=== PATIENT | female | born 1960 | race Caucasian/White ===

== ENCOUNTER 2018-12-12 18:59 | Emergency (ER) | payer OTHER, MEDICAID ==
[~2018-12-12] VITALS: Ht 167.6 cm; Wt 90.7 kg
[2018-12-12 19:01] VITALS: BP 165/91
[2018-12-12] MEDS ORDERED: VITD1000 PO (19:08)
[2018-12-12] MEDS ORDERED: FURO-570 PO (19:08)
[2018-12-12] MEDS ORDERED: POLY15SO48 OP (19:08)
[2018-12-12] MEDS ORDERED: POTA10TE30 PO (19:08)
[2018-12-12] MEDS ORDERED: CYAN100T65 PO (19:08)
[2018-12-12] MEDS ORDERED: OLAN2.5T1 PO ×2 (19:08)
[2018-12-12] MEDS ORDERED: ACET-2619 PO (19:08)
[2018-12-12] MEDS ORDERED: LISI5TAB18 PO (19:08)
--- NOTE | 2018-12-12 19:19 | NUR ---
PT [facility] ED [facility]/O ABD PAIN WITH N/V/D X 2DAYS. ABD IS SOFT NON TENDER, NO DISTENTION NOTED. PT DENIES PAIN UPON PALPATION. REPORTING INCREASED DIARRHEA OVER THE LAST DAY. PT PLACED INTO BED, PENDING MD BLAIR.
[2018-12-12] MEDS ORDERED: ALUMINUM HYD/MAG/SIMETHICONE 30 ML UDC PO ONE (20:30)
[2018-12-12 20:35] LABS: APPEARANCE,URINE SL CLOUDY (CLEAR); BILIRUBIN,URINE NEGATIVE (NEGATIVE); BLOOD, URINE NEGATIVE (NEGATIVE); COLOR,URINE YELLOW (YELLOW); LEUKOCYTE ESTERASE ,URINE 1+ (NEGATIVE); NITRITE, URINE NEGATIVE (NEGATIVE); UGLUCOSE NEGATIVE (NEGATIVE)
[2018-12-12 20:38] LABS: RBC,URINE 0-5 /HPF (0-5); WBC,URINE 16-25 (MOD) /HPF (0-5)
--- NOTE | 2018-12-12 21:17 | NUR ---
PT REPORTS RELIEF OF PAIN POST VEST BASTER. WILL CONTINUE TO ASSESS.
[2018-12-12] MEDS ORDERED: CEPHALEXIN 500 MG CAP PO ONE (21:20)
--- NOTE | 2018-12-12 21:26 | NUR ---
SPOKE WITH ROSA MARIA AT [facility], INFORMED OF PT STATUS. PER ROSA MARIA, PT OKAY TO TRANSPORT VIA [facility], STAFF WILL BE PRESENT TO RECEIVE PT AT FACILITY.
--- NOTE | 2018-12-12 22:23 | NUR ---
Patient discharged with v/s stable. Written and verbal after care instructions given and explained. Patient alert, oriented and verbalized understanding of instructions. Wheel Chair Assisted with to car. All questions addressed prior to discharge. ID band removed. Patient advised to follow up with PMD. Rx of KEFLEX, BENTYL given. Patient educated on indication of medication including possible reaction and side effects. Opportunity to ask questions provided and answered.
[2018-12-12 22:24] VITALS: BP 127/55
--- NOTE | 2018-12-12 22:24 | NUR ---
PT W/C ASSISTED TO LOBBY AWAITING CAB. PT VERBALIZES UNDERSTANDING OF ALL INSTRUCTIONS.
== END 2018-12-12 22:23 | disposition home or self-care (01) ==
LOC: MED 18:59
DX: N39.0 Urinary tract infection, site not specified (principal); B34.9 Viral infection, unspecified; I10 Essential (primary) hypertension; F99 Mental disorder, not otherwise specified; Z79.899 Other long term (current) drug therapy
CPT/HCPCS: 81001; 87086; 99283

== ENCOUNTER 2019-05-13 15:19 | Emergency (ER) | payer OTHER, MEDICAID ==
[~2019-05-13] VITALS: Ht 170.2 cm; Wt 105.7 kg
[~2019-05-13 15:19] MED LIST: ACET-2619 PO; CYAN100T65 PO; FURO-570 PO; LISI5TAB18 PO; OLAN2.5T1 PO; POLY15SO48 OP; POTA10TE30 PO; VITD1000 PO
--- NOTE | 2019-05-13 15:19 | NUR ---
PT BIBA TO BED 12.
[2019-05-13 15:22] VITALS: BP 150/83
--- NOTE | 2019-05-13 15:25 | NUR ---
BIBA W C/O SUDDEN ONSET LOWER BACK PAIN STARTING APPROX. 6 HRS AGO. PT HAD 1 EPISODE OF URINARY INCONTINENCE THAT SHE WAS UNAWARE OF UNTIL SHE FELT HER PANTS WET. PT REPORTS PAIN IS SEVERE 10/10 AND DENIES INJURY. NO BRUISING OR DISCOLORATION NOTED. AT THIS TIME, PT IS ABLE TO STAND UP WITH PAIN BUT UNABLE TO WALK. USUALLY AMBULATES AT [facility]ISON WITHOUT ASSISTANCE. PT ALERT AND AWAKE. BED IS DWON, LOCKED, BED RAIL X 1, ERMD TO SEE PT. HX: HTN, SCHIZOPHRENIA RX: SEE MED REC
--- NOTE | 2019-05-13 15:58 | NUR ---
PT ASSISTED ONTO BEDPAN
--- NOTE | 2019-05-13 16:08 | NUR ---
URINE COLLECTED AND PT ASSISTED OFF OF BEDPAN
[2019-05-13] MEDS ORDERED: ONDANSETRON 4 MG ODT PO ONE (16:45)
[2019-05-13] MEDS ORDERED: KETOROLAC 30 MG/ML VIAL IM ONE (16:45)
[2019-05-13] MEDS ORDERED: HYDROcodone/APAP 5/325 MG 1 TAB TAB PO ONE (16:45)
--- NOTE | 2019-05-13 16:53 | NUR ---
TORADOL, ZOFRAN, AND NORCO ADMINISTERED ORDERED, PAIN 10/10 PER PATIENT
--- NOTE | 2019-05-13 16:56 | NUR ---
[facility]
[2019-05-13 17:11] LABS: APPEARANCE,URINE CLEAR (CLEAR); BILIRUBIN,URINE NEGATIVE (NEGATIVE); BLOOD, URINE NEGATIVE (NEGATIVE); COLOR,URINE YELLOW (YELLOW); LEUKOCYTE ESTERASE ,URINE TRACE (NEGATIVE); NITRITE, URINE POSITIVE (NEGATIVE); UGLUCOSE NEGATIVE (NEGATIVE)
--- NOTE | 2019-05-13 17:34 | NUR ---
REPORT GIVEN TO ORIANA CELAYA
--- NOTE | 2019-05-13 17:34 | NUR ---
PT RETURNED FROM CT VIA [facility]
[2019-05-13 17:46] LABS: RBC,URINE NONE SEEN /HPF (0-5); WBC,URINE NONE SEEN /HPF (0-5)
--- NOTE | 2019-05-13 18:25 | NUR ---
PT RECIEVED FOOD TRAY.
--- NOTE | 2019-05-13 18:49 | NUR ---
FANNIE REPORTED TO ORTEGA SARABIA. Addendum: 05/13/19 at 1851 [facility]
--- NOTE | 2019-05-13 19:26 | NUR ---
BEDSIDE REPORT GIVEN TO SHAUNNA CELAYA
--- NOTE | 2019-05-13 19:26 | NUR ---
REPORT RECIEVED FROM BELIA JOSHUA. ASSUMED CARE AT THIS TIME. PT IN STABLE CONDITION. WILL CONTINUE TO MONITOR.
--- NOTE | 2019-05-13 21:10 | NUR ---
PT SEEN WITH EYES CLOSED. VISIBLE CHEST RISE AND FALL NOTED. VSS. WILL CONTINUE TO MONITOR.
--- NOTE | 2019-05-13 22:50 | NUR ---
PT ASSISTED TO RESTROOM USING BEDPAN.
--- NOTE | 2019-05-13 23:40 | NUR ---
PT SEEN WITH EYES CLOSED. VISIBLE CHEST RISE AND FALL NOTED. WILL CONTINUE TO MONITOR.
--- NOTE | 2019-05-14 01:00 | NUR ---
PT GIVEN CRACKERS AND JUICE. ALL NEEDS MET AT THIS TIME.
[2019-05-14 01:59] VITALS: BP 114/61
--- NOTE | 2019-05-14 02:00 | NUR ---
SPOKE WITH SHIRA FROM [place], ETA FOR P/U IS 35-45MINS.
--- NOTE | 2019-05-14 03:05 | NUR ---
[facility] AT BEDSIDE TO TRANSPORT PT. SPOKE WITH ADRI AT [facility] TO INFORM HER THAT PT WAS RETURNING.
--- NOTE | 2019-05-14 03:15 | NUR ---
Patient discharged with v/s stable. Written and verbal after care instructions given and explained. Patient alert, oriented and verbalized understanding of instructions. Ambulance Transport by [facility]. All questions addressed prior to discharge. ID band removed. Patient advised to follow up with PMD. Rx of ibuprofen, norco, and zofran given. Patient educated on indication of medication including possible reaction and side effects. Opportunity to ask questions provided and answered.
== END 2019-05-14 03:15 ==
LOC: MED 15:19
DX: M54.5 Low back pain (principal); I10 Essential (primary) hypertension; R20.9 Unspecified disturbances of skin sensation; Z79.899 Other long term (current) drug therapy
CPT/HCPCS: 72131; 81001; 96372; 99284; J1885; Q0162

== ENCOUNTER 2023-05-03 20:24 | Inpatient (IN) | payer OTHER, MEDICAID ==
[~2023-05-03] VITALS: Ht 170.2 cm; Wt 98.4 kg
[~2023-05-03 20:24] MED LIST changes: -ACET-2619 PO; +ASPI-1206 PO; +AZIT250T3 PO; +CHOL100084 PO; -CYAN100T65 PO; +DEC1 PO; +DOCU-299 PO; +POTA10TA70 PO; -POTA10TE30 PO; +VALP-22 PO; +VITB12 PO; -VITD1000 PO
[2023-05-03 20:27] VITALS: BP 166/84; PULSE 84; RESP 18; TEMP 98; O2SAT 98
[2023-05-03 21:44] LABS: BASOPHILS # (AUTO) 0.1 K/uL (0.00-0.22); BASOPHILS % (AUTO) 0.6 % (0.0-2.0); EOSINOPHILS # (AUTO) 0.2 K/uL (0-0.4); EOSINOPHILS % (AUTO) 1.9 % (0.0-4.0); HEMATOCRIT 42.2 % (36-48); HEMOGLOBIN 14.3 g/dL (12.0-16.0); LYMPHOCYTES # (AUTO) 1.5 K/uL (2.5-16.5); LYMPHOCYTES % (AUTO) 16.7 % (20.5-51.1); MEAN CORPUSCULAR HEMOGLOBIN 30 pg (27-31); MEAN CORPUSCULAR HGB CONC 34 g/dL (33-37); MEAN CORPUSCULAR VOLUME 88.9 fL (80-94); MONOCYTES # (AUTO) 0.9 K/uL (0.8-1.0); MONOCYTES % (AUTO) 9.9 % (1.7-9.3); NEUTROPHILS # (AUTO) 6.5 K/uL (1.8-7.7); NEUTROPHILS % (AUTO) 70.9 % (42.2-75.2); PLATELET COUNT (AUTO) 380 K/uL (140-450); RED BLOOD CELL COUNT(AUTO) 4.74 MIL/uL (4.20-5.40); RED CELL DISTRIBUTION WIDTH 13.9 % (11.6-13.7); WHITE BLOOD COUNT (AUTO) 9.2 K/uL (4.8-10.8)
[2023-05-03 21:59] LABS: ALBUMIN 3.5 g/dL (3.4-5.0); ANION GAP 10.1 (8-16); CALCIUM 8.6 mg/dL (8.5-10.1); CARBON DIOXIDE 28.9 mmol/L (21-32); CREATININE 0.9 mg/dL (0.6-1.3); TOTAL BILIRUBIN 0.4 mg/dL (0.0-1.0)
[2023-05-03 22:07] LABS: LACTIC ACID 0.9 mmol/L (0.4-2.0)
[2023-05-03] MEDS ORDERED: cefTRIAXone 1,000 MG VIAL ONE (22:47)
[2023-05-03 22:54] LABS: APPEARANCE,URINE CLEAR (CLEAR); BILIRUBIN,URINE NEGATIVE (NEGATIVE); BLOOD, URINE NEGATIVE (NEGATIVE); COLOR,URINE YELLOW (YELLOW); LEUKOCYTE ESTERASE ,URINE NEGATIVE (NEGATIVE); NITRITE, URINE NEGATIVE (NEGATIVE); PROTEIN,URINE NEGATIVE (NEGATIVE); UGLUCOSE NEGATIVE (NEGATIVE); UROBILINOGEN,URINE 0.2 EU/dL (0.2 - 1)
[2023-05-04] VITALS (8 sets, daily range): BP systolic 135; BP diastolic 61; PULSE 81; RESP 20; TEMP 98.6; O2SAT 97–100
[2023-05-04] MEDS ORDERED: ASPI-1822 PO (04:38)
[2023-05-04] MEDS ORDERED: POTASSIUM CHLORIDE 10 MEQ TABER PO PRN (08:05)
[2023-05-04] MEDS ORDERED: ZOLPIDEM 5 MG TAB PO PRN (08:05)
[2023-05-04] MEDS ORDERED: ACETAMINOPHEN 325 MG TAB PO PRN (08:05)
[2023-05-04] MEDS ORDERED: ONDANSETRON 4 MG/2 ML VIAL IM/IVP PRN (08:05)
[2023-05-04] MEDS ORDERED: HYDROcodone/APAP 7.5/325 MG 1 TAB PO PRN (08:05)
[2023-05-04] MEDS ORDERED: DOCUSATE SODIUM 100 MG GELCAP PO PRN (08:05)
[2023-05-04] MEDS ORDERED: guaiFENesin DM 200/20 MG-10 ML 10 ML UDC PO PRN (08:05)
[2023-05-04] MEDS: NACL 0.9% 1,000 ML IV SCH ×3 (08:58→23:03)
[2023-05-04] MEDS: PANTOPRAZOLE 40 MG TABEC PO SCH (09:06)
[2023-05-04 10:27] LABS: CHOL/HDL RATIO 3.4 (1-4.5); FREE T4 (FREE THYROXINE) 0.85 ng/dL (0.76-1.46); MAGNESIUM 1.7 mg/dL (1.8-2.4); PHOSPHORUS 4.5 mg/dL (2.5-4.9); THYROID STIMULATING HORMONE 4.39 uIU/mL (0.34-3.74)
[2023-05-04 10:38] LABS: INR 0.92 (0.8-1.2); PARTIAL THROMBOPLASTIN TIME 30.1 secs (22-35.6); PROTHROMBIN TIME 9.7 secs (10.8-13.4)
[2023-05-04] MEDS ORDERED: cefTRIAXone 1,000 MG VIAL ONE (22:25)
[2023-05-05 06:23] LABS: BASOPHILS % (AUTO) 0.6 % (0.0-2.0); EOSINOPHILS # (AUTO) 0.2 K/uL (0-0.4); HEMATOCRIT 38.6 % (36-48); HEMOGLOBIN 12.9 g/dL (12.0-16.0); LYMPHOCYTES # (AUTO) 1.3 K/uL (2.5-16.5); LYMPHOCYTES % (AUTO) 15.2 % (20.5-51.1); MEAN CORPUSCULAR HEMOGLOBIN 30 pg (27-31); MEAN CORPUSCULAR HGB CONC 34 g/dL (33-37); MEAN CORPUSCULAR VOLUME 88.6 fL (80-94); MONOCYTES # (AUTO) 0.7 K/uL (0.8-1.0); MONOCYTES % (AUTO) 8.4 % (1.7-9.3); NEUTROPHILS # (AUTO) 6.1 K/uL (1.8-7.7); NEUTROPHILS % (AUTO) 73.8 % (42.2-75.2); PLATELET COUNT (AUTO) 306 K/uL (140-450); RED BLOOD CELL COUNT(AUTO) 4.35 MIL/uL (4.20-5.40); RED CELL DISTRIBUTION WIDTH 14.2 % (11.6-13.7); WHITE BLOOD COUNT (AUTO) 8.3 K/uL (4.8-10.8)
[2023-05-05 06:48] LABS: ANION GAP 11.4 (8-16); CALCIUM 8.1 mg/dL (8.5-10.1); CARBON DIOXIDE 26.4 mmol/L (21-32); CREATININE 0.7 mg/dL (0.6-1.3); POTASSIUM 3.8 mmol/L (3.5-5.1)
[2023-05-05 07:09] LABS: HEMOGLOBIN A1C 5.5 % (4.8-5.6)
[2023-05-05 08:00] VITALS: BP 142/60; PULSE 73; RESP 18; TEMP 97.8; O2SAT 96
[2023-05-05] MEDS ORDERED: MAGNESIUM OXIDE 400 MG TAB PO SCH (08:56)
[2023-05-05] MEDS: PANTOPRAZOLE 40 MG TABEC PO SCH (08:59)
[2023-05-05] MEDS: LIDOCAINE 5% 1 EA PATCH TP SCH (09:01)
[2023-05-05] MEDS: NACL 0.9% 1,000 ML IV SCH ×2 (09:02→16:05)
[2023-05-05 11:24] VITALS: O2SAT 99
[2023-05-05 16:00] VITALS: BP 141/52; PULSE 83; RESP 18; TEMP 98.5; O2SAT 96
[2023-05-05 20:00] VITALS: PULSE 84; RESP 18; O2SAT 98
[2023-05-05 20:03] VITALS: BP 150/59; PULSE 84; RESP 18; TEMP 99; O2SAT 98
[2023-05-06] MEDS: NACL 0.9% 1,000 ML IV SCH ×2 (00:05→08:05)
[2023-05-06 06:48] LABS: ANION GAP 12.1 (8-16); CALCIUM 8.6 mg/dL (8.5-10.1); CARBON DIOXIDE 28.9 mmol/L (21-32); CREATININE 0.8 mg/dL (0.6-1.3)
[2023-05-06 06:52] LABS: BASOPHILS # (AUTO) 0.1 K/uL (0.00-0.22); BASOPHILS % (AUTO) 0.8 % (0.0-2.0); EOSINOPHILS # (AUTO) 0.2 K/uL (0-0.4); EOSINOPHILS % (AUTO) 2.4 % (0.0-4.0); HEMATOCRIT 41.3 % (36-48); HEMOGLOBIN 13.9 g/dL (12.0-16.0); LYMPHOCYTES # (AUTO) 1.5 K/uL (2.5-16.5); MEAN CORPUSCULAR HEMOGLOBIN 30 pg (27-31); MEAN CORPUSCULAR HGB CONC 34 g/dL (33-37); MEAN CORPUSCULAR VOLUME 89.3 fL (80-94); MONOCYTES # (AUTO) 0.7 K/uL (0.8-1.0); MONOCYTES % (AUTO) 8.6 % (1.7-9.3); NEUTROPHILS # (AUTO) 6.1 K/uL (1.8-7.7); NEUTROPHILS % (AUTO) 70.2 % (42.2-75.2); PLATELET COUNT (AUTO) 299 K/uL (140-450); RED BLOOD CELL COUNT(AUTO) 4.63 MIL/uL (4.20-5.40); RED CELL DISTRIBUTION WIDTH 14.1 % (11.6-13.7); WHITE BLOOD COUNT (AUTO) 8.6 K/uL (4.8-10.8)
[2023-05-06 08:00] VITALS: BP 143/59; PULSE 75; RESP 18; TEMP 98; O2SAT 98
[2023-05-06] MEDS ORDERED: MULTIVITAMIN 1 TAB PO SCH (09:00)
[2023-05-06] MEDS ORDERED: ASCORBIC ACID 500 MG TAB PO SCH (09:00)
[2023-05-06] MEDS ORDERED: ZINC SULF 220 MG CAP PO SCH (09:00)
[2023-05-06] MEDS ORDERED: SULF-59 PO (09:24)
[2023-05-06] MEDS: LIDOCAINE 5% 1 EA PATCH TP SCH (10:21)
[2023-05-06] MEDS: PANTOPRAZOLE 40 MG TABEC PO SCH (10:22)
== END 2023-05-06 14:45 | DRG 603 ==
LOC: MED 20:24 → MTU 05-04 08:07
PROVIDERS: ADMIT Family Medicine; ATTEND Family Medicine
DX: L03.116 Cellulitis of left lower limb (principal); E83.42 Hypomagnesemia; I87.8 Other specified disorders of veins; E66.9 Obesity, unspecified; Z68.34 Body mass index [BMI] 34.0-34.9, adult; Z79.82 Long term (current) use of aspirin; Z79.899 Other long term (current) drug therapy
CPT/HCPCS: 36415; 71045; 80048; 80053; 81003; 82150; 83036; 83605; 83690; 83735; 83880; 84100; 84436; 84439; 84443; 84479; 85025; 85610; 85730; 87040; 87081; 93971; 96365; 99285; J0696; J7060

== ENCOUNTER 2023-11-14 10:26 | Inpatient (IN) | payer OTHER, MEDICAID ==
[~2023-11-14] VITALS: Ht 170.2 cm; Wt 99.8 kg
[~2023-11-14 10:26] MED LIST changes: +ASPI-1822 PO; +SULF-59 PO
[2023-11-14 10:42] VITALS: BP 157/66; PULSE 88; RESP 18; TEMP 97.6; O2SAT 94
[2023-11-14 11:30] LABS: BASOPHILS # (AUTO) 0.1 K/uL (0.00-0.22); BASOPHILS % (AUTO) 0.8 % (0.0-2.0); EOSINOPHILS # (AUTO) 0.1 K/uL (0-0.4); EOSINOPHILS % (AUTO) 1.3 % (0.0-4.0); HEMATOCRIT 39.7 % (36-48); HEMOGLOBIN 13.9 g/dL (12.0-16.0); LYMPHOCYTES # (AUTO) 1.1 K/uL (2.5-16.5); LYMPHOCYTES % (AUTO) 17.3 % (20.5-51.1); MEAN CORPUSCULAR HEMOGLOBIN 31 pg (27-31); MEAN CORPUSCULAR HGB CONC 35 g/dL (33-37); MEAN CORPUSCULAR VOLUME 87.9 fL (80-94); MONOCYTES # (AUTO) 0.9 K/uL (0.8-1.0); MONOCYTES % (AUTO) 13.7 % (1.7-9.3); NEUTROPHILS # (AUTO) 4.2 K/uL (1.8-7.7); NEUTROPHILS % (AUTO) 66.9 % (42.2-75.2); PLATELET COUNT (AUTO) 303 K/uL (140-450); RED BLOOD CELL COUNT(AUTO) 4.52 MIL/uL (4.20-5.40); WHITE BLOOD COUNT (AUTO) 6.3 K/uL (4.8-10.8)
[2023-11-14] MEDS ORDERED: ACET-10509 PO (11:38)
[2023-11-14] MEDS ORDERED: LACT1CAP50 PO (11:40)
[2023-11-14] MEDS ORDERED: OLAN2.5T1 PO (11:41)
[2023-11-14] MEDS ORDERED: peri-colace (11:43)
[2023-11-14] MEDS ORDERED: SENN-73 PO (11:43)
[2023-11-14] MEDS ORDERED: FURO40TA9 PO (11:47)
[2023-11-14] MEDS ORDERED: cefTRIAXone 1,000 MG VIAL ONE (11:49)
[2023-11-14 11:55] LABS: LACTIC ACID 0.9 mmol/L (0.4-2.0)
[2023-11-14 11:59] LABS: CALCIUM 8.6 mg/dL (8.5-10.1); CARBON DIOXIDE 27.7 mmol/L (21-32); CREATININE 0.7 mg/dL (0.6-1.3); POTASSIUM 3.7 mmol/L (3.5-5.1)
[2023-11-14] MEDS ORDERED: HYDROcodone/APAP 5/325 MG 1 TAB TAB PO PRN (13:00)
[2023-11-14] MEDS ORDERED: ONDANSETRON 4 MG/2 ML VIAL IVP PRN (13:00)
[2023-11-14] MEDS ORDERED: VANCOMYCIN PER PHARMACY MC PRN (13:00)
[2023-11-14] MEDS ORDERED: MORPHINE SULFATE 2 MG/ML SYR IVP PRN (13:00)
[2023-11-14] MEDS: NACL 0.9% 1,000 ML IV SCH (13:13)
[2023-11-14] MEDS ORDERED: PIPERACILLIN/TAZOBACTAM 3.375 GM VIAL IV ONE (13:23)
[2023-11-14] MEDS: PIPERACILLIN/TAZOBACTAM 3.375 GM in DEXTROSE 5% 50 ML IV SCH (13:27)
[2023-11-14] MEDS: VANCOMYCIN 1.25GM PREMIX 250 ML IV SCH (14:12)
[2023-11-14 15:53] VITALS: BP 110/39; PULSE 77; RESP 18; TEMP 97.6; O2SAT 95
[2023-11-14 16:12] VITALS: PULSE 77; O2SAT 95
[2023-11-14] MEDS: ACETAMINOPHEN 325 MG TAB PO PRN (19:53)
[2023-11-14 20:00] VITALS: BP 127/64; PULSE 85; RESP 18; TEMP 97.3; O2SAT 98
[2023-11-14] MEDS: VALPROIC ACID 250 MG/5 ML UDC PO SCH (20:27)
[2023-11-14] MEDS: OLANZapine 2.5 MG TAB PO SCH (20:27)
[2023-11-15 04:00] VITALS: BP 133/68; PULSE 75; RESP 18; TEMP 96.9; O2SAT 98
[2023-11-15 07:01] LABS: BASOPHILS % (AUTO) 0.9 % (0.0-2.0); EOSINOPHILS # (AUTO) 0.1 K/uL (0-0.4); EOSINOPHILS % (AUTO) 2.6 % (0.0-4.0); HEMATOCRIT 37.6 % (36-48); HEMOGLOBIN 12.9 g/dL (12.0-16.0); LYMPHOCYTES # (AUTO) 1.3 K/uL (2.5-16.5); MEAN CORPUSCULAR HEMOGLOBIN 31 pg (27-31); MEAN CORPUSCULAR HGB CONC 34 g/dL (33-37); MEAN CORPUSCULAR VOLUME 89.5 fL (80-94); MONOCYTES # (AUTO) 0.6 K/uL (0.8-1.0); NEUTROPHILS # (AUTO) 3.6 K/uL (1.8-7.7); NEUTROPHILS % (AUTO) 62.5 % (42.2-75.2); PLATELET COUNT (AUTO) 296 K/uL (140-450); WHITE BLOOD COUNT (AUTO) 5.7 K/uL (4.8-10.8)
[2023-11-15 07:02] LABS: ANION GAP 13.2 (8-16); CALCIUM 8.4 mg/dL (8.5-10.1); CARBON DIOXIDE 27.3 mmol/L (21-32); CREATININE 0.7 mg/dL (0.6-1.3); POTASSIUM 3.5 mmol/L (3.5-5.1)
[2023-11-15 08:00] VITALS: BP 120/55; PULSE 69; PULSE 85; RESP 18; TEMP 97.5; O2SAT 98
[2023-11-15] MEDS: LACTOBACILLUS RHAMNOSUS GG 1 EACH CAP PO SCH (08:51)
[2023-11-15] MEDS: DOCUSATE SODIUM 250 MG GELCAP PO SCH (08:52)
[2023-11-15] MEDS: ENOXAPARIN 40 MG/0.4 ML SYR SUBQ SCH (08:53)
[2023-11-15] MEDS: FUROSEMIDE 40 MG TAB PO SCH (08:53)
[2023-11-15] MEDS: CHOLECALCIFEROL 1,000 IU TAB PO SCH (08:54)
[2023-11-15] MEDS ORDERED: S THERM PO SCH (09:00)
[2023-11-15] MEDS ORDERED: B BIF PO SCH (09:00)
[2023-11-15] MEDS ORDERED: [UNRECOGNIZED DRUG - OTHER] PO SCH (09:00)
[2023-11-15 16:00] VITALS: BP 107/46; PULSE 82; RESP 18; TEMP 98; O2SAT 97
[2023-11-15 20:00] VITALS: BP 123/57; PULSE 82; RESP 19; TEMP 97.6; O2SAT 97
[2023-11-16 04:00] VITALS: BP 117/52; PULSE 70; RESP 18; TEMP 97.1; O2SAT 98
[2023-11-16 06:35] LABS: BASOPHILS # (AUTO) 0.1 K/uL (0.00-0.22); BASOPHILS % (AUTO) 0.8 % (0.0-2.0); EOSINOPHILS # (AUTO) 0.2 K/uL (0-0.4); HEMATOCRIT 39.7 % (36-48); HEMOGLOBIN 13.7 g/dL (12.0-16.0); LYMPHOCYTES # (AUTO) 1.4 K/uL (2.5-16.5); MEAN CORPUSCULAR HEMOGLOBIN 31 pg (27-31); MEAN CORPUSCULAR HGB CONC 35 g/dL (33-37); MEAN CORPUSCULAR VOLUME 88.9 fL (80-94); MONOCYTES # (AUTO) 0.5 K/uL (0.8-1.0); MONOCYTES % (AUTO) 7.3 % (1.7-9.3); NEUTROPHILS # (AUTO) 4.5 K/uL (1.8-7.7); NEUTROPHILS % (AUTO) 67.9 % (42.2-75.2); PLATELET COUNT (AUTO) 329 K/uL (140-450); RED BLOOD CELL COUNT(AUTO) 4.46 MIL/uL (4.20-5.40); RED CELL DISTRIBUTION WIDTH 14.2 % (11.6-13.7); WHITE BLOOD COUNT (AUTO) 6.6 K/uL (4.8-10.8)
[2023-11-16 06:50] LABS: ANION GAP 11.6 (8-16); CALCIUM 8.6 mg/dL (8.5-10.1); CARBON DIOXIDE 28.2 mmol/L (21-32); CREATININE 0.8 mg/dL (0.6-1.3); POTASSIUM 3.8 mmol/L (3.5-5.1)
[2023-11-16 08:00] VITALS: BP 130/54; PULSE 66; PULSE 82; RESP 17; RESP 19; TEMP 97; O2SAT 95; O2SAT 97
[2023-11-16 16:00] VITALS: BP 127/58; PULSE 72; RESP 18; TEMP 98.1; O2SAT 97
[2023-11-16 20:00] VITALS: BP 129/50; PULSE 74; PULSE 82; RESP 18; TEMP 98.7; O2SAT 96
[2023-11-17 04:00] VITALS: BP 134/51; PULSE 63; RESP 18; TEMP 97.6; O2SAT 95
[2023-11-17 07:13] LABS: BASOPHILS # (AUTO) 0.1 K/uL (0.00-0.22); BASOPHILS % (AUTO) 0.6 % (0.0-2.0); EOSINOPHILS # (AUTO) 0.2 K/uL (0-0.4); EOSINOPHILS % (AUTO) 2.8 % (0.0-4.0); HEMATOCRIT 39.7 % (36-48); HEMOGLOBIN 13.7 g/dL (12.0-16.0); LYMPHOCYTES # (AUTO) 1.5 K/uL (2.5-16.5); LYMPHOCYTES % (AUTO) 18.6 % (20.5-51.1); MEAN CORPUSCULAR HEMOGLOBIN 31 pg (27-31); MEAN CORPUSCULAR HGB CONC 34 g/dL (33-37); MEAN CORPUSCULAR VOLUME 89.2 fL (80-94); MONOCYTES # (AUTO) 0.7 K/uL (0.8-1.0); MONOCYTES % (AUTO) 8.5 % (1.7-9.3); NEUTROPHILS # (AUTO) 5.7 K/uL (1.8-7.7); NEUTROPHILS % (AUTO) 69.5 % (42.2-75.2); PLATELET COUNT (AUTO) 355 K/uL (140-450); RED BLOOD CELL COUNT(AUTO) 4.45 MIL/uL (4.20-5.40); RED CELL DISTRIBUTION WIDTH 13.9 % (11.6-13.7); WHITE BLOOD COUNT (AUTO) 8.2 K/uL (4.8-10.8)
[2023-11-17 07:42] VITALS: PULSE 74; PULSE 82
[2023-11-17 07:43] VITALS: PULSE 78; RESP 18; O2SAT 99
[2023-11-17 08:02] LABS: ANION GAP 12.8 (8-16); CALCIUM 8.5 mg/dL (8.5-10.1); CARBON DIOXIDE 26.8 mmol/L (21-32); CREATININE 0.8 mg/dL (0.6-1.3); POTASSIUM 3.6 mmol/L (3.5-5.1)
[2023-11-17] MEDS ORDERED: CLIN-223 PO (09:17)
[2023-11-17] MEDS ORDERED: LEVO-481 PO (09:17)
== END 2023-11-17 12:28 | disposition home or self-care (01) | DRG 603 ==
LOC: MED 10:26 → MMU 13:02 → MTU 15:11
PROVIDERS: ADMIT Family Medicine; ATTEND Family Medicine
DX: L03.116 Cellulitis of left lower limb (principal); I10 Essential (primary) hypertension; Z79.82 Long term (current) use of aspirin; Z79.899 Other long term (current) drug therapy
CPT/HCPCS: 36415; 80048; 80202; 83605; 85025; 85651; 86140; 87040; 87081; 93970; 96374; 99285; J0696; J1650; J2543; J3372; J7060; Q0092